=== PATIENT | male | born 1990 | race African-American/Black ===

== ENCOUNTER 2017-03-30 12:23 | Emergency (ER) | payer OTHER ==
--- OUTSIDE RECORDS SUMMARY | 2017-03-30 12:46 | XMS | Clinical Summary ---
:1990 Author Organization [facility] Address [address] [place] [address] Phone Care Team Providers Name Role Phone , Primary Care Provider Unavailable Allergies No Known Allergies Current Medications No known medications Active Problems Not on file Social History Tobacco Use Types Packs/Day Years Used Date Never Smoker Alcohol Use Drinks/Week oz/Week Comments No Sex Assigned at Date Recorded Not on file Last Filed Vital Signs Vital Sign Reading Time Taken Blood Pressure 155/85 12/15/2014 1:23 PM CDT Pulse 98 12/15/2014 1:23 PM CDT Temperature 36.6 C (97.9 F) 12/15/2014 12:33 PM CDT Respiratory Rate 17 12/15/2014 1:23 PM CDT Oxygen Saturation 95% 12/15/2014 1:23 PM CDT Inhaled Oxygen Concentration - - Weight 104.3 kg (230 lb) 12/14/2014 10:25 AM CDT Height 175.3 cm (5' 9.02") 12/14/2014 10:25 AM CDT Body Mass Index 33.95 12/14/2014 10:25 AM CDT Plan of Treatment Not on file Implants Implanted Type Area Room Manager Device Expiration Date Model / Identifier Serial / Lot [employer] Cornea Tissue Right: [employer] EYES OF 12/23/2014 / Implanted:Qty: 1 on 12/15/2014 by Elodia Roberts MD Eye [employer] [id number] / Results Not on filefrom Last 3 Months
[2017-03-30] MEDS ORDERED: Iopamidol 370 76% 50 ML VIAL FS ONE (13:33)
[2017-03-30] MEDS ORDERED: ISOVUE-370 76%-LOCM 1 ML ONE (13:34)
[2017-03-30 16:10] LABS: #Basophils 0.1 thou/uL (0.0-0.2); #Eosinphils 0.2 thou/uL (0.0-0.7); #Lymphocytes 1.9 thou/uL (1.20-3.40); #Neutrophils 4.9 thou/uL (1.40-6.50); %Basophils 1.2 % (0.0-1.0); %Lymphocytes 23.1 % (21.0-51.0); %Monocytes 12.4 % (0.0-10.0); Mean Platelet Volume 10.7 fL (7.4-10.4); White Blood Cell (WBC) Count 8.1 thou/uL (4.8-10.8)
[2017-03-30 16:19] LABS: ALT (SGPT) 20 U/L (8-55); AST (SGOT) 16 U/L (5-34); Alkaline Phosphatase 114 U/L (40-150); Anion Gap 16 mmol/L (10-20); BUN (Urea Nitrogen) 8 mg/dL (8.9-20.6); Bilirubin, Total 0.6 mg/dL (0.2-1.2); Calc. Creatinine Clearance 0 mL/min (70-130); Calcium 10.2 mg/dL (7.8-10.44); Carbon Dioxide 26 mmol/L (22-29); Chloride 99 mmol/L (98-107); Estimated GFR-MDRD Greater than 90; Globulin 4.4 g/dL (2.4-3.5); Protein, Total 9.1 g/dL (6.0-8.3)
[2017-03-30 16:59] LABS: Bilirubin Negative (Negative); Blood, Urine Negative (Negative); Glucose, Urine (Dipstick) Negative (Negative); Ketone, Urine Negative (Negative); Nitrite Negative (Negative); Protein, Urine (Dipstick) Negative (Neg-Trace)
--- NOTE | 2017-03-30 19:28 | CT ---
CT OF ABDOMEN AND PELVIS 03/30/17 COMPARISON: 08/27/16 HISTORY: Constipation and rectal pain. TECHNIQUE: Serial axial CT imaging at 5 mm intervals from the lung bases through the pubic symphysis with IV an d oral contrast. FINDINGS: The imaged lung bases appears unremarkable. There is no free intraperitoneal air noted. The liver, gallbladder, spleen, pancreas, adrenal glands, and kidneys appear unremarkable. There is abnormal increased density in the perirectal/presacral fat, most significant along the post erior aspect of the distal colon/rectum right of midline. There is a focal area of wall thickening o f the distal colon/rectum in this region, best seen on axial image 85. There are numerous enlarged n odes adjacent to the distal colon and rectum both posterior to as well as anterior to the rectum and superior to the distal colon near the rectosigmoid junction. This includes a node anterior to the s acrum and to the left of midline measuring 1.1 cm on axial image 74. Numerous perirectal fat enlarge d nodes are noted as well. There is no evidence for bowel obstruction. No evidence for abscess. No evidence for appendicitis. An enlarged node is noted in the inguinal region on the left measuring up to 1.9 cm in short axis di mension, new. Mildly enlarged nodes are seen in the right inguinal region measuring up to 1.2 cm, ne w as well. There is a mildly prominent para-aortic node on the left on axial image 46 measuring 5-8 mm in short axis dimension. The vascular structures appear patent. No acute osseous abnormality is seen. IMPRESSION: Perirectal fat stranding with focal area of rectal wall thickening posteriorly on the right. These f indings are suspicious for an inflammatory/infectious process. However, lymphadenopathy in the perir ectal fat and in the inguinal region while likely reactive in nature, could potentially be neoplasti c, on the basis of an underlying rectal tumor. Thus, short term followup direct visualization via co lonoscopy following treatment of the acute symptoms is advised. Dr. Suad Castrejon made aware 5:40 p.m., 03/30/17. Code CR POS: [facility]
== END 2017-03-30 18:55 | disposition home or self-care (01) ==
LOC: ERS 12:23
DX: K59.00 Constipation, unspecified (principal); K62.89 Other specified diseases of anus and rectum; I10 Essential (primary) hypertension; Z79.899 Other long term (current) drug therapy
CPT/HCPCS: 74177; 80053; 81003; 85025; 96360

== ENCOUNTER 2017-10-21 09:39 | Emergency (ER) | payer OTHER | END 2017-10-21 10:33 | disposition home or self-care (01) | LOC: SCSER 09:39 | DX: A60.01 Herpesviral infection of penis (principal); M79.644 Pain in right finger(s); B20 Human immunodeficiency virus [HIV] disease; I10 Essential (primary) hypertension; Z79.4 Long term (current) use of insulin; Z79.899 Other long term (current) drug therapy | CPT/HCPCS: 99283 ==

== ENCOUNTER 2018-06-24 14:42 | Inpatient (IN) | payer OTHER ==
[2018-06-24 15:36] LABS: #Basophils 0.1 thou/uL (0.0-0.2); #Eosinphils 0.1 thou/uL (0.0-0.7); #Lymphocytes 1.1 thou/uL (1.20-3.40); #Monocytes 0.5 thou/uL (0.11-0.59); #Neutrophils 5.6 thou/uL (1.40-6.50); %Basophils 0.7 % (0.0-1.0); %Eosinophils 0.8 % (0.0-10.0); %Lymphocytes 14.5 % (21.0-51.0); %Monocytes 6.8 % (0.0-10.0); %Neutrophils 77.2 % (42.0-75.0); Hemoglobin 14.8 g/dL (14.0-18.0); Mean Corpuscular Hemoglobin 28.3 pg (27.0-31.0); Mean Corpuscular Volume 81.1 fL (78.0-98.0); Mean Platelet Volume 11.4 fL (7.4-10.4); Platelet Count 137 thou/uL (130-400); RBC Distribution Width 11.4 % (11.5-14.5); Red Blood Cell (RBC) Count 5.22 mill/uL (4.70-6.10); White Blood Cell (WBC) Count 7.3 thou/uL (4.8-10.8)
[2018-06-24] MEDS ORDERED: Adacel (T-DAP) 0.5 ML SYRINGE ONE (15:39)
[2018-06-24] MEDS ORDERED: Morphine 4 MG/ML VIAL ONE (15:39)
[2018-06-24] MEDS ORDERED: Piperacillin/Tazobactam 3.375 GM VIAL ONE (15:39)
[2018-06-24] MEDS ORDERED: Ondansetron PF 4 MG/2 ML Vial ONE (15:39)
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
[2018-06-24 16:07] LABS: ALT (SGPT) 15 U/L (8-55); AST (SGOT) 22 U/L (5-34); Albumin 4.2 g/dL (3.5-5.0); Alkaline Phosphatase 247 U/L (40-150); Anion Gap 16 mmol/L (10-20); BUN (Urea Nitrogen) 9 mg/dL (8.9-20.6); Bilirubin, Total 0.4 mg/dL (0.2-1.2); Calc. Creatinine Clearance 0 mL/min (70-130); Carbon Dioxide 26 mmol/L (22-29); Chloride 88 mmol/L (98-107); Estimated GFR-MDRD 63; Globulin 4.9 g/dL (2.4-3.5); Protein, Total 9.1 g/dL (6.0-8.3); Sodium 126 mmol/L (136-145)
[2018-06-24 16:11] LABS: Glucose 724 mg/dL (70-105)
[2018-06-24 16:19] LABS: Lipase 42 U/L (8-78); Phosphorus 3.5 mg/dL (2.3-4.7)
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
[2018-06-24] MEDS ORDERED: Ketorolac Tromethamine 30 MG/ML VIAL ONE (16:35)
[2018-06-24 16:53] LABS: Bilirubin Negative (Negative); Blood, Urine Negative (Negative); Clarity CLEAR (Clear); Glucose, Urine (Dipstick) >=1000 mg/dL (Negative); Leukocyte Negative (Negative); Nitrite Negative (Negative); Protein, Urine (Dipstick) Negative (Neg-Trace); Specific Gravity, Urine 1.029 (1.002-1.036); Urobilinogen 0.2 mg/dL (0.2-1.0)
[2018-06-24] MEDS ORDERED: Fentanyl 100 MCG/2 ML VIAL ONE (17:42)
[2018-06-24] MEDS ORDERED: Insulin Regular 300 UNITS/3 ML VIAL ONE (19:06)
[2018-06-24] MEDS ORDERED: Ondansetron PF 4 MG/2 ML Vial IVP PRN (19:54)
[2018-06-24] MEDS ORDERED: traMADol HCl 50 MG TAB PO PRN (19:54)
[2018-06-24] MEDS ORDERED: Dextrose 50% Abboject 50 ML SYRINGE SLOW IVP PRN (19:54)
[2018-06-24] MEDS ORDERED: Dextrose 5% in Water 1,000 ML IV PRN (19:54)
[2018-06-24] MEDS ORDERED: hydrALAZINE 20 MG/ML VIAL SLOW IVP PRN (19:54)
[2018-06-24] MEDS ORDERED: traMADol HCl 50 MG TAB ONE (20:53)
[2018-06-24] MEDS ORDERED: Famotidine 20 MG TAB ONE (20:54)
[2018-06-24] MEDS: Famotidine 20 MG TAB PO SCH (20:59)
[2018-06-24] MEDS: traMADol HCl 50 MG TAB PO PRN (21:00)
[2018-06-24] MEDS: Sodium Chloride 0.9% 1,000 ML IV SCH (21:23)
[2018-06-25] MEDS: Acetaminophen 1,000 MG in Premix Bag 1 BAG IVPB SCH ×5 (01:07→23:57)
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
[2018-06-25 03:54] LABS: #Basophils 0.1 thou/uL (0.0-0.2); #Eosinphils 0.1 thou/uL (0.0-0.7); #Lymphocytes 1.5 thou/uL (1.20-3.40); #Monocytes 0.9 thou/uL (0.11-0.59); #Neutrophils 9.4 thou/uL (1.40-6.50); %Basophils 0.5 % (0.0-1.0); %Eosinophils 0.4 % (0.0-10.0); %Lymphocytes 12.3 % (21.0-51.0); %Monocytes 7.9 % (0.0-10.0); Hemoglobin 13.6 g/dL (14.0-18.0); Mean Corpuscular HGB CONC 33.4 g/dL (32.0-36.0); Mean Corpuscular Hemoglobin 27.5 pg (27.0-31.0); Mean Corpuscular Volume 82.5 fL (78.0-98.0); Mean Platelet Volume 11.4 fL (7.4-10.4); Platelet Count 137 thou/uL (130-400); RBC Distribution Width 11.7 % (11.5-14.5); Red Blood Cell (RBC) Count 4.95 mill/uL (4.70-6.10); White Blood Cell (WBC) Count 11.8 thou/uL (4.8-10.8)
[2018-06-25 04:02] LABS: Prothrombin Time 13.5 SEC (12.0-14.7)
[2018-06-25 04:32] LABS: ALT (SGPT) 12 U/L (8-55); AST (SGOT) 11 U/L (5-34); Albumin 3.7 g/dL (3.5-5.0); Alkaline Phosphatase 139 U/L (40-150); Anion Gap 15 mmol/L (10-20); BUN (Urea Nitrogen) 8 mg/dL (8.9-20.6); Bilirubin, Total 0.5 mg/dL (0.2-1.2); Calc. Creatinine Clearance 0 mL/min (70-130); Calcium 9.3 mg/dL (7.8-10.44); Carbon Dioxide 23 mmol/L (22-29); Chloride 100 mmol/L (98-107); Estimated GFR-MDRD Greater than 90; Globulin 3.9 g/dL (2.4-3.5); Glucose 373 mg/dL (70-105); Magnesium 2.1 mg/dL (1.6-2.6); Phosphorus 4.4 mg/dL (2.3-4.7); Potassium 4.1 mmol/L (3.5-5.1); Protein, Total 7.6 g/dL (6.0-8.3); Sodium 134 mmol/L (136-145)
[2018-06-25] MEDS: Famotidine 20 MG TAB PO SCH ×2 (08:16→22:04)
[2018-06-25] MEDS: Sodium Chloride 0.9% 1,000 ML IV SCH ×3 (08:17→22:03)
[2018-06-25 08:25] VITALS: BMI 27.9
[2018-06-25] MEDS: Chlorhexidine Gluconate 15 ML UDCUP SSP SCH ×2 (09:00→22:04)
[2018-06-25] MEDS ORDERED: HumaLOG 300 UNITS/3 ML VIAL ONE (09:12)
[2018-06-25] MEDS: HumaLOG 300 UNITS/3 ML VIAL SC PRN ×2 (10:08→18:55)
[2018-06-25 10:36] LABS: Amphetamine Not Detected (NotDetected); Barbiturates Screen Not Detected (NotDetected); Benzodiazepine Screen Not Detected (NotDetected); Cocaine Metabolite Screen Not Detected (NotDetected); Medtox Control Line Valid? VALID (VALID); Medtox Reader # READER 1; Methadone Not Detected (NotDetected); Methamphetamine Not Detected (NotDetected); Opiate Screen Detected (NotDetected); Oxycodone Screen Not Detected (NotDetected); Phencyclidine (PCP) Not Detected (NotDetected); THC/Cannabinoid Screen Not Detected (NotDetected); Tricyclic Screen Not Detected (NotDetected)
[2018-06-25] MEDS ORDERED: Morphine 4 MG/ML VIAL ONE ×2 (11:19→15:29)
[2018-06-25] MEDS: Morphine 4 MG/ML VIAL SLOW IVP PRN ×2 (11:22→15:38)
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
[2018-06-25] MEDS: Clindamycin/D5W 900 MG in Premix Bag 1 BAG IVPB SCH ×2 (18:34→22:04)
[2018-06-25] MEDS: traMADol HCl 50 MG TAB PO PRN (22:35)
[2018-06-25] MEDS: Guaifenesin DM 100-10/5 ML UDCUP PO PRN (22:39)
[2018-06-26] MEDS: HumaLOG 300 UNITS/3 ML VIAL SC PRN ×6 (04:19→20:46)
[2018-06-26] MEDS: Clindamycin/D5W 900 MG in Premix Bag 1 BAG IVPB SCH ×3 (05:10→21:32)
[2018-06-26] MEDS: Sodium Chloride 0.9% 1,000 ML IV SCH ×2 (05:10→14:21)
[2018-06-26 06:47] LABS: BUN (Urea Nitrogen) 7 mg/dL (8.9-20.6); Calc. Creatinine Clearance 204 mL/min (70-130); Calcium 9.3 mg/dL (7.8-10.44); Carbon Dioxide 22 mmol/L (22-29); Estimated GFR-MDRD Greater than 90; Glucose 216 mg/dL (70-105); Magnesium 1.8 mg/dL (1.6-2.6); Phosphorus 3.2 mg/dL (2.3-4.7)
[2018-06-26 06:54] LABS: Chloride 101 mmol/L (98-107); Potassium 3.7 mmol/L (3.5-5.1); Sodium 134 mmol/L (136-145)
[2018-06-26 07:14] LABS: Anion Gap 15 mmol/L (10-20)
[2018-06-26] MEDS ORDERED: Potassium Chloride 30 MEQ in Sodium Chloride 0.9% 250 ML 250 ML IV SCH (07:45)
[2018-06-26] MEDS: Famotidine 20 MG TAB PO SCH ×2 (08:24→20:39)
[2018-06-26] MEDS: traMADol HCl 50 MG TAB PO PRN ×2 (08:24→20:39)
[2018-06-26] MEDS: Chlorhexidine Gluconate 15 ML UDCUP SSP SCH ×2 (08:24→20:40)
[2018-06-26] MEDS ORDERED: Magnesium 2 GM/50 ML 1 GM in Premix Bag 1 BAG IVPB SCH (08:30)
[2018-06-26 09:05] LABS: #Eosinphils 0.1 thou/uL (0.0-0.7); #Lymphocytes 1.6 thou/uL (1.20-3.40); #Monocytes 1.1 thou/uL (0.11-0.59); #Neutrophils 5.3 thou/uL (1.40-6.50); %Basophils 0.6 % (0.0-1.0); %Lymphocytes 19.3 % (21.0-51.0); %Monocytes 13.6 % (0.0-10.0); %Neutrophils 65.4 % (42.0-75.0); Hemoglobin 12.7 g/dL (14.0-18.0); Mean Corpuscular HGB CONC 33.3 g/dL (32.0-36.0); Mean Corpuscular Hemoglobin 28.2 pg (27.0-31.0); Mean Corpuscular Volume 84.6 fL (78.0-98.0); Mean Platelet Volume 11.6 fL (7.4-10.4); Platelet Count 117 thou/uL (130-400); Platelet Morphology Comment Appears Decreased; RBC Distribution Width 11.5 % (11.5-14.5); White Blood Cell (WBC) Count 8.1 thou/uL (4.8-10.8)
[2018-06-26] MEDS: Morphine 4 MG/ML VIAL SLOW IVP PRN (11:08)
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
[2018-06-26] MEDS: Acetaminophen 500 MG TAB PO SCH ×2 (15:47→20:39)
[2018-06-26] MEDS: Guaifenesin DM 100-10/5 ML UDCUP PO PRN (18:21)
[2018-06-26] MEDS: Senokot S 8.6-50 MG TAB PO SCH (20:39)
[2018-06-27] MEDS ORDERED: Dextrose 5 %-0.45 % NaCl 1,000 ML IV SCH (00:01)
[2018-06-27] MEDS: HumaLOG 300 UNITS/3 ML VIAL SC PRN ×5 (00:16→23:15)
[2018-06-27] MEDS: Acetaminophen 500 MG TAB PO SCH ×4 (03:09→20:34)
[2018-06-27] MEDS: Clindamycin/D5W 900 MG in Premix Bag 1 BAG IVPB SCH ×3 (05:37→21:33)
[2018-06-27] MEDS ORDERED: Dextrose 5% in Water 1,000 ML IV PRN (06:26)
[2018-06-27] MEDS ORDERED: Dextrose 50% Abboject 50 ML SYRINGE SLOW IVP PRN (06:26)
[2018-06-27 06:52] LABS: #Eosinphils 0.1 thou/uL (0.0-0.7); #Lymphocytes 1.3 thou/uL (1.20-3.40); #Monocytes 0.8 thou/uL (0.11-0.59); #Neutrophils 3.4 thou/uL (1.40-6.50); %Basophils 0.8 % (0.0-1.0); %Eosinophils 1.9 % (0.0-10.0); %Lymphocytes 22.6 % (21.0-51.0); %Monocytes 14.1 % (0.0-10.0); %Neutrophils 60.5 % (42.0-75.0); Hemoglobin 12.1 g/dL (14.0-18.0); Mean Corpuscular HGB CONC 33.2 g/dL (32.0-36.0); Mean Corpuscular Hemoglobin 28.4 pg (27.0-31.0); Mean Corpuscular Volume 85.7 fL (78.0-98.0); Mean Platelet Volume 11.3 fL (7.4-10.4); Platelet Count 121 thou/uL (130-400); RBC Distribution Width 11.4 % (11.5-14.5); Red Blood Cell (RBC) Count 4.27 mill/uL (4.70-6.10); White Blood Cell (WBC) Count 5.7 thou/uL (4.8-10.8)
[2018-06-27 07:05] LABS: Anion Gap 12 mmol/L (10-20); BUN (Urea Nitrogen) 6 mg/dL (8.9-20.6); Calc. Creatinine Clearance 204 mL/min (70-130); Calcium 9.1 mg/dL (7.8-10.44); Carbon Dioxide 23 mmol/L (22-29); Chloride 101 mmol/L (98-107); Estimated GFR-MDRD Greater than 90; Glucose 202 mg/dL (70-105); Magnesium 1.6 mg/dL (1.6-2.6); Phosphorus 3.5 mg/dL (2.3-4.7); Potassium 3.4 mmol/L (3.5-5.1); Sodium 133 mmol/L (136-145)
[2018-06-27] MEDS ORDERED: Potassium ACETATE 40 MEQ/20 ML VIAL IV SCH (07:30)
[2018-06-27] MEDS ORDERED: Magnesium 2 GM/50 ML 2 GM in Premix Bag 1 BAG IVPB SCH (07:30)
[2018-06-27] MEDS ORDERED: Potassium ACETATE 40 MEQ in Sodium Chloride 0.9% 250 ML 250 ML IV SCH (08:00)
[2018-06-27] MEDS ORDERED: Fentanyl 100 MCG/2 ML VIAL ONE ×2 (08:11)
[2018-06-27] MEDS ORDERED: Midazolam HCl 2 mg/2 ml Vial ONE (08:11)
[2018-06-27] MEDS ORDERED: Famotidine/PF 20 mg/2ml Vial ONE (08:11)
[2018-06-27] MEDS ORDERED: Clindamycin/D5W 900 mg/50 ml Premix Bag ONE (08:14)
[2018-06-27] MEDS ORDERED: Oxymetazoline HCl 0.05% ( 15 ML ) ONE (08:17)
[2018-06-27] MEDS ORDERED: Lidocaine 2% Jelly 5 ML TUBE ONE (08:17)
[2018-06-27] MEDS ORDERED: Chlorhexidine Gluconate 15 ML UDCUP SSP ONE (08:22)
[2018-06-27] MEDS ORDERED: Hydrocortisone 1% Cream 30 GM TUBE ONE (08:22)
[2018-06-27] MEDS ORDERED: Bupivacaine HCl 0.25%/Epi 0.0005/PF 10 ML VIAL FS ONE (08:22)
[2018-06-27] MEDS ORDERED: Lidocaine 1% w/Epinephrine 1:100K 20 ML VIAL ONE (08:22)
[2018-06-27] MEDS ORDERED: Dexamethasone 4 mg/ml Vial ONE (08:34)
[2018-06-27] MEDS ORDERED: Propofol 500 MG/50 ML VIAL ONE (09:20)
[2018-06-27] MEDS ORDERED: PROPOFOL 40 ML ONE (09:21)
[2018-06-27] MEDS ORDERED: Promethazine HCl 25 MG/ML VIAL SLOW IVP PRN (10:56)
[2018-06-27] MEDS ORDERED: Ondansetron HCl/PF 4 MG/2 ML Vial IVP PRN (10:56)
[2018-06-27] MEDS ORDERED: HYDROmorphone 2 MG/ML VIAL SLOW IVP PRN (10:56)
[2018-06-27] MEDS ORDERED: Meperidine HCl/PF 25 MG/ML VIAL SLOW IVP PRN (10:56)
[2018-06-27] MEDS ORDERED: Promethazine HCl 25 MG/ML VIAL IM PRN (10:56)
[2018-06-27] MEDS ORDERED: HumaLOG 300 UNITS/3 ML VIAL ONE (11:48)
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
[2018-06-27] MEDS: Sodium Chloride 0.9% 1,000 ML IV SCH ×3 (14:10→20:45)
[2018-06-27] MEDS: Chlorhexidine Gluconate 15 ML UDCUP SSP SCH ×2 (14:10→20:34)
[2018-06-27] MEDS: Famotidine 20 MG TAB PO SCH ×2 (14:10→20:35)
[2018-06-27] MEDS: Senokot S 8.6-50 MG TAB PO SCH ×2 (14:10→20:35)
[2018-06-27] MEDS: Polyethylene Glycol 3350 17 GM Packet PO SCH (15:17)
[2018-06-27] MEDS: traMADol HCl 50 MG TAB PO PRN ×2 (15:18→23:13)
[2018-06-27 15:39] LABS: Potassium 4.3 mmol/L (3.5-5.1)
[2018-06-27] MEDS ORDERED: PROPOFOL 200 MG/20 ML VIAL ONE (17:02)
[2018-06-27] MEDS ORDERED: Rocuronium Bromide 10 MG/ML (10ML VIAL) ONE (17:02)
[2018-06-27] MEDS ORDERED: Lidocaine 1% PF 5 ML VIAL ONE (17:02)
[2018-06-27] MEDS ORDERED: ePHEDrine 50 MG/ML VIAL ONE (17:02)
[2018-06-27] MEDS ORDERED: Glycopyrrolate 0.2 MG/ML 5 ML SYRINGE ONE (17:02)
[2018-06-27] MEDS ORDERED: Metoclopramide HCl 10 MG/2 ML VIAL ONE (17:02)
[2018-06-27] MEDS ORDERED: Succinylcholine Chloride 20 MG/ML 10 ml SYRINGE FS ONE (17:02)
[2018-06-27] MEDS ORDERED: PHENYLEPHRINE-NS 100 MCG/ML 10 ML SYRINGE ONE (17:02)
[2018-06-27] MEDS ORDERED: Ketorolac Tromethamine 30 MG/ML VIAL ONE (17:02)
[2018-06-27] MEDS ORDERED: Ondansetron PF 4 MG/2 ML Vial ONE (17:02)
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
[2018-06-28] MEDS: Acetaminophen 500 MG TAB PO SCH ×2 (02:33→08:09)
[2018-06-28] MEDS: Sodium Chloride 0.9% 1,000 ML IV SCH ×2 (03:41→05:57)
[2018-06-28] MEDS: HumaLOG 300 UNITS/3 ML VIAL SC PRN (04:49)
[2018-06-28] MEDS: Clindamycin/D5W 900 MG in Premix Bag 1 BAG IVPB SCH (05:53)
[2018-06-28] MEDS: Guaifenesin DM 100-10/5 ML UDCUP PO PRN (06:55)
[2018-06-28] MEDS: Chlorhexidine Gluconate 15 ML UDCUP SSP SCH (08:09)
[2018-06-28] MEDS: Senokot S 8.6-50 MG TAB PO SCH (08:09)
[2018-06-28] MEDS: Famotidine 20 MG TAB PO SCH (08:09)
[2018-06-28] MEDS: Polyethylene Glycol 3350 17 GM Packet PO SCH (08:09)
[2018-06-28 08:36] VITALS: BP 131/73; TEMP 97.8
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
== END 2018-06-28 11:47 | disposition home or self-care (01) | DRG 131 ==
LOC: ERS 14:42 → ERHOLD 19:17 → SURG A 06-25 21:10
PROVIDERS: ADMIT Surgery; ATTEND Surgery
PROC: 0NST04Z Reposition Right Mandible with Internal Fixation Device, Open Approach (ICD-10-PCS; principal; 2018-06-27)
DX: S02.609A Fracture of mandible, unspecified, initial encounter for closed fracture (principal); E87.1 Hypo-osmolality and hyponatremia; N17.9 Acute kidney failure, unspecified; Z21 Asymptomatic human immunodeficiency virus [HIV] infection status; I10 Essential (primary) hypertension; F16.90 Hallucinogen use, unspecified, uncomplicated; Z79.4 Long term (current) use of insulin; E10.65 Type 1 diabetes mellitus with hyperglycemia; Z91.14 Patient's other noncompliance with medication regimen; Z94.7 Corneal transplant status
CPT/HCPCS: 36415; 36416; 70450; 70486; 80048; 80053; 80306; 81003; 82010; 83690; 83735; 84100; 85025; 85610; 85730; 90471; 90715; 96365; 96375; C1713; J0131; J1100; J1815; J1885; J2001; J2250; J2270; J2405; J2543; J2704; J2765; J3010; J3475; J3490; J7050; S0028

== ENCOUNTER 2018-08-22 09:03 | Day surgery (SDC) | payer OTHER ==
[2018-08-21 15:50] VITALS: BMI 29.4
[2018-08-22] MEDS ORDERED: Clindamycin/D5W 900 mg/50 ml Premix Bag ONE (10:30)
[2018-08-22] MEDS ORDERED: Chlorhexidine Gluconate 15 ML UDCUP SSP ONE (10:52)
[2018-08-22] MEDS ORDERED: Lidocaine 1% w/Epinephrine 1:100K 20 ML VIAL ONE (10:52)
[2018-08-22] MEDS ORDERED: Bupivacaine/Epinephrine 0.25% 30 ML VIAL ONE (10:52)
[2018-08-22] MEDS ORDERED: Fentanyl 100 MCG/2 ML VIAL ONE ×2 (10:52→13:10)
[2018-08-22] MEDS ORDERED: Hydrocortisone 1% Cream 30 GM TUBE ONE (10:52)
[2018-08-22] MEDS ORDERED: Lidocaine 2% Jelly 5 ML TUBE ONE (10:53)
[2018-08-22] MEDS ORDERED: Dexamethasone 4 mg/ml Vial ONE (10:56)
[2018-08-22] MEDS ORDERED: Insulin Regular 300 UNITS/3 ML VIAL ONE (10:56)
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
== END 2018-08-22 16:45 | disposition home or self-care (01) ==
LOC: SDC 09:03
PROVIDERS: ATTEND Dentist Oral and Maxillofacial Surgery
PROC: 0NST04Z Reposition Right Mandible with Internal Fixation Device, Open Approach (ICD-10-PCS; principal; 2018-08-22)
DX: T84.218A Breakdown (mechanical) of internal fixation device of other bones, initial encounter (principal); E11.9 Type 2 diabetes mellitus without complications; Z21 Asymptomatic human immunodeficiency virus [HIV] infection status; Z79.4 Long term (current) use of insulin; Z79.899 Other long term (current) drug therapy; Z98.890 Other specified postprocedural states; Z91.11 Patient's noncompliance with dietary regimen
CPT/HCPCS: 36416; C1713; J1100; J1815; J2001; J3010; J3490

== ENCOUNTER 2019-07-18 08:04 | Inpatient (IN) | payer OTHER ==
[2019-07-18 09:00] LABS: #Lymphocytes 1.2 thou/uL (1.20-3.40); #Neutrophils 7.6 thou/uL (1.40-6.50); %Basophils 0.3 % (0.0-1.0); %Eosinophils 0.3 % (0.0-10.0); %Lymphocytes 12.4 % (21.0-51.0); %Monocytes 10.4 % (0.0-10.0); %Neutrophils 76.7 % (42.0-75.0); Hemoglobin 13.9 g/dL (14.0-18.0); Mean Corpuscular HGB CONC 33.7 g/dL (32.0-36.0); Mean Corpuscular Hemoglobin 27.8 pg (27.0-31.0); Mean Corpuscular Volume 82.4 fL (78.0-98.0); Mean Platelet Volume 11.8 fL (7.4-10.4); Platelet Count 110 thou/uL (130-400); RBC Distribution Width 11.5 % (11.5-14.5); White Blood Cell (WBC) Count 9.9 thou/uL (4.8-10.8)
[2019-07-18 09:21] LABS: ALT (SGPT) 10 U/L (8-55); AST (SGOT) 11 U/L (5-34); Albumin 4.1 g/dL (3.5-5.0); Alkaline Phosphatase 220 U/L (40-110); Anion Gap 9 mmol/L (10-20); BUN (Urea Nitrogen) 8 mg/dL (8.9-20.6); Bilirubin, Total 0.8 mg/dL (0.2-1.2); Calc. Creatinine Clearance 0 mL/min (70-130); Calcium 9.3 mg/dL (7.8-10.44); Carbon Dioxide 29 mmol/L (22-29); Chloride 96 mmol/L (98-107); Estimated GFR-MDRD Greater than 90; Globulin 3.7 g/dL (2.4-3.5); Potassium 4.3 mmol/L (3.5-5.1); Protein, Total 7.8 g/dL (6.0-8.3); Sodium 130 mmol/L (136-145)
[2019-07-18 09:25] LABS: Glucose 597 mg/dL (70-105)
[2019-07-18] MEDS ORDERED: Clindamycin/D5W 900 mg/50 ml Premix Bag ONE ×2 (09:27→09:29)
[2019-07-18] MEDS ORDERED: Ketorolac Tromethamine 30 MG/ML VIAL ONE (09:27)
[2019-07-18] MEDS ORDERED: Dexamethasone 10 MG/ML VIAL ONE (09:27)
[2019-07-18] MEDS ORDERED: Insulin Regular 300 UNITS/3 ML VIAL ONE (09:48)
--- NOTE | 2019-07-18 09:49 | CT ---
Exam: POSTCONTRAST FACE CT: HISTORY: Right-sided jaw swelling. History of surgery one year ago. COMPARISON: 06/24/2018. FINDINGS: Visualized brain parenchyma does not imaging and pathologic enhancement. Orbits: Bilateral ocular lenses are appropriately located. Both globes are intact. Retrobulbar fat is preserved. Symmetric attenuation of the optic nerves and ocular rectus muscles. Adequate aeration of the visualized paranasal sinuses and mastoid air cells. Zygomatic arches are intact. Nasal bones are intact. Bilaterally, ostiomeatal complexes are patent. Intact nasal septum with mild deviation towards the right side. There is associated bony spur. Osseous margins of the sinuses and orbits are maintained. Maxilla is intact. There is demonstration of internal fixation hardware along the right mandible. Bas ed on the images provided, there does not appear to be any perihardware lucency. There is a lucency along the lateral margin of the mandible which may represent an incompletely healed fracture. Fractur e does abut the inferior alveolar canal. There is extensive right facial soft tissue/subcutaneous edema. Edematous change involves the right m asseter muscle which appears to be enlarged and heterogeneous. Intramuscular infection is suspected. Lymphadenopathy: There are enlarged right level 1 lymph nodes measuring 1.7 x 1.1 cm, and 1.7 x 1.2 c m. Enlarged right level 5 lymph node measures 1.1 x 1.8 cm. Enlarged left level 1 lymph node measures 1.3 x 1.2 cm. No evidence of a periapical abscess left or right mandibular teeth. However, there are dental caries in the posterior-most right mandibular tooth in the second left mandibular tooth. IMPRESSION: 1. Inflammatory changes involving the right face with edema/prominence of the right masseter muscle. Source is uncertain but may be involved from an infected internal fixation plate along the right mandible. 2. Periodontal disease as described above. Possibility of an odontogenic origin of the inflammatory c hanges in the right face/neck cannot be entirely excluded. 3. Presumed reactive lymphadenopathy. Transcribed Date/Time: 07/18/2019 9:59 AM
[2019-07-18] MEDS ORDERED: Iopamidol-370 76% 500 ML 1 ML ONE (11:01)
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
[2019-07-18] MEDS ORDERED: Dextrose 50% Abboject 50 ML SYRINGE SLOW IVP PRN (13:15)
[2019-07-18] MEDS ORDERED: Dextrose 5% in Water 1,000 ML IV PRN (13:15)
[2019-07-18] MEDS ORDERED: Senokot S 8.6-50 MG TAB PO PRN (13:23)
[2019-07-18] MEDS ORDERED: Acetaminophen 650 MG Suppository PR PRN (13:23)
[2019-07-18] MEDS ORDERED: Ondansetron PF 4 MG/2 ML Vial IVP PRN (13:23)
[2019-07-18] MEDS: HumuLIN 70/30 (300 UNITS/3 ML VIAL) SC SCH (18:06)
[2019-07-18] MEDS: Clindamycin/D5W 900 MG in Premix Bag 1 BAG IVPB SCH (18:06)
--- NOTE | 2019-07-18 18:18 | CON ---
DATE OF CONSULTATION: CHIEF COMPLAINT/REASON FOR CONSULTATION: Right jaw pain and swelling. HISTORY OF PRESENT ILLNESS: This is a 29-year-old male with history of uncontrolled diabetes and right mandibular fracture over a year ago, treated with ORIF. The patient has intermittent pain and swelling from that area. Currently, admitted to the Family Medicine Service. PAST MEDICAL HISTORY: HIV, uncontrolled diabetes type 2. He has bilateral blindness. The patient's medicines as noted in the EHR. ALLERGIES: NO KNOWN DRUG ALLERGIES. PAST SURGICAL HISTORY: Bilateral corneal transplant, right jaw with ORIF x2. SOCIAL HISTORY: The patient denies alcohol, tobacco, and drug use. PHYSICAL EXAMINATION: VITAL SIGNS: The patient's blood pressure 142/83, pulse 100, respiratory rate 16, T-max 98.6, saturating 100% on room air. GENERAL: He is no acute distress. HEENT: He has large ___amount mastoid area swelling. There is purulent drainage through the right mandibular vestibule in the area of necrotic tooth #32 as well as tooth 1. Also, there is palpable plate that is palpable under underlying mucosa. His opening is good. His oropharynx is clear. V3 is intact. CT scan of the face shows inflammatory changes in the right masseter muscle area adjacent to decayed tooth #32 and a fractured plate in the lower right. LABORATORY STUDIES: White blood cell 9.9, platelets 110. Glucose is 597. ASSESSMENT: A 29-year-old male, history of HIV, uncontrolled type 2 diabetes with right submandibular abscess secondary to possibly mandibular hardware versus decayed abscessed teeth 1 and 32. PLAN: We will take patient to OR tomorrow for incision and drainage of abscess as well as removal of teeth 1 and 32, possibly removal of right mandibular hardware. Please keep patient on clindamycin 900 mg IV q.6-8 hours and Peridex oral rinse 15 mL swish and spit t.i.d. Job ID: [id number] [facility]OSPITALElza
[2019-07-18] MEDS: Ketorolac Tromethamine 30 MG/ML VIAL IVP PRN (20:46)
[2019-07-18] MEDS: Famotidine/PF 20 mg/2ml Vial SLOW IVP SCH (20:46)
[2019-07-18] MEDS: HumaLOG 300 UNITS/3 ML VIAL SC PRN (21:48)
[2019-07-19] MEDS: Clindamycin/D5W 900 MG in Premix Bag 1 BAG IVPB SCH ×3 (02:16→17:48)
[2019-07-19] MEDS: Ketorolac Tromethamine 30 MG/ML VIAL IVP PRN ×2 (03:49→16:22)
[2019-07-19] MEDS: HumaLOG 300 UNITS/3 ML VIAL SC PRN ×3 (05:50→20:49)
--- NOTE | 2019-07-19 05:56 | PDOC.FM ---
- Subjective Subjective: Patient complains of some right jaw pain this morning. He is due to have surgery with OMFS later today. Otherwise has no complaints. Patient's BP has been elevated since admission, he states that he used to take HCTZ and Amlodipine but ran out of meds in Mar 2019 and never followed up for refills. - Objective MAR Reviewed: Yes Vital Signs & Weight: Vital Signs (12 hours) Temp Pulse Resp BP Pulse Ox 07/19/19 03:51 99.2 F 105 H 18 142/74 H 99 07/18/19 23:11 98.2 F 97 16 142/75 H 98 07/18/19 20:48 99.1 F 102 H 18 132/74 98 Weight Weight 97.5 kg Result Diagrams: 07/19/19 05:56 07/19/19 05:56 Phys Exam - Physical Examination Constitutional: NAD HEENT: moist MMs swollen right jaw with overlying warmth Neck: supple Respiratory: no wheezing, no rhonchi, clear to auscultation bilateral Cardiovascular: RRR, no significant murmur Gastrointestinal: soft, positive bowel sounds Musculoskeletal: no edema, pulses present Neurological: normal sensation, moves all 4 limbs Psychiatric: normal affect, A&O x 3 Skin: no rash, normal turgor Dx/Plan (1) Infection of mandible Code(s): M27.2 - INFLAMMATORY CONDITIONS OF JAWS Status: Acute (2) Diabetes mellitus Code(s): E11.9 - TYPE 2 DIABETES MELLITUS WITHOUT COMPLICATIONS Status: Chronic Qualifiers: Diabetes mellitus type: type 2 Diabetes mellitus intermodal dispatcher insulin use: unspecified intermodal dispatcher insulin use status Diabetes mellitus complication status : with hyperglycemia Qualified Code(s): E11.65 - Type 2 diabetes mellitus with hyperglycemia (3) HIV (human immunodeficiency virus infection) Code(s): B20 - HUMAN IMMUNODEFICIENCY VIRUS [HIV] DISEASE Status: Acute Qualifiers: HIV symptom status: asymptomatic Qualified Code(s): Z21 - Asymptomatic human immunodeficiency virus [HIV] infection status - Plan Plan: Patient is a 29 yo AAM with past medical history of HIV, DM2, 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 1. Jaw Pain 2/2 Mandibular Fracture Plate Infection Pain & swelling in R side of face WBC normal CT: Inflammatory changes R masseter muscle, infected interanal fixation plate of R mandible, peridontal disease, reactive LAD Original surgery 06/15 Revision 09/13 Currently on Clinda s/p 1 dose in the ED, continue at 900 mg IV q8 hr per OMFS Continued toradol for pain prn Patient is currently NPO OMFS was contacted by the ED--plan on surgery this morning, continue Clindamycin, start Peridex oral rinse TID Alk Phos is elevated likely indicating bone infection 2. HIV + Continue home medication Biktarvy Pt has not been taking medication regularly as verified by his pharmacy ID doctor is Dr. Conway tried to contact, but his office is closed CD4 count and viral load ordered & pending 3. DMII Continue home med: Novolog 40 U QAM & 30 U QPM Aggressive SSI ACHS Accuchecks 4. Elevated Blood Pressure Hx of HTN, previously took HCTZ and Amlodipine but stopped in Mar 2019 d/t running out of supply If BP remains elevated at surgery, will consider restarting HCTZ Code Status: Full Activity: Ad Luz Maria Diet: NPO pending I&D this AM DVT PPx: SCDs Dispo: Stable, admitted to Surg inpt. I&D with possible hardware removal scheduled for this morning, will await further OMFS recs. Anticipate discharge in <48 hrs.
[2019-07-19 06:18] LABS: #Lymphocytes 1.2 thou/uL (1.20-3.40); #Monocytes 1.3 thou/uL (0.11-0.59); #Neutrophils 10.4 thou/uL (1.40-6.50); %Basophils 0.1 % (0.0-1.0); %Eosinophils 0.2 % (0.0-10.0); %Lymphocytes 9.1 % (21.0-51.0); %Monocytes 10.3 % (0.0-10.0); %Neutrophils 80.3 % (42.0-75.0); Hemoglobin 12.5 g/dL (14.0-18.0); Mean Corpuscular HGB CONC 34.5 g/dL (32.0-36.0); Mean Platelet Volume 11.7 fL (7.4-10.4); Platelet Count 110 thou/uL (130-400); RBC Distribution Width 11.5 % (11.5-14.5); White Blood Cell (WBC) Count 12.9 thou/uL (4.8-10.8)
[2019-07-19 06:33] LABS: ALT (SGPT) 8 U/L (8-55); AST (SGOT) 9 U/L (5-34); Albumin 3.4 g/dL (3.5-5.0); Alkaline Phosphatase 112 U/L (40-110); Anion Gap 10 mmol/L (10-20); BUN (Urea Nitrogen) 9 mg/dL (8.9-20.6); Bilirubin, Total 0.8 mg/dL (0.2-1.2); Calc. Creatinine Clearance 167 mL/min (70-130); Carbon Dioxide 26 mmol/L (22-29); Chloride 100 mmol/L (98-107); Estimated GFR-MDRD Greater than 90; Globulin 3.8 g/dL (2.4-3.5); Glucose 372 mg/dL (70-105); Potassium 4.1 mmol/L (3.5-5.1); Protein, Total 7.2 g/dL (6.0-8.3); Sodium 132 mmol/L (136-145)
[2019-07-19] MEDS ORDERED: Chlorhexidine Gluconate 15 ML UDCUP SSP ONE ×2 (07:21→07:23)
[2019-07-19] MEDS ORDERED: Sodium Chloride 0.9% 10 ML ONE (07:21)
[2019-07-19] MEDS ORDERED: Lidocaine 1% w/Epinephrine 1:100K 20 ML VIAL ONE (07:21)
[2019-07-19] MEDS ORDERED: Bacitracin Zinc Ointment 30 gm TUBE ONE (07:21)
[2019-07-19] MEDS ORDERED: Fentanyl 100 MCG/2 ML VIAL ONE ×2 (07:31)
[2019-07-19] MEDS ORDERED: Midazolam HCl 2 mg/2 ml Vial ONE (07:31)
[2019-07-19] MEDS ORDERED: Clindamycin/D5W 900 mg/50 ml Premix Bag ONE (07:39)
[2019-07-19] MEDS ORDERED: AFRIN NASAL MIST 15 ML BOT ONE (07:58)
[2019-07-19] MEDS ORDERED: Insulin Regular 300 UNITS/3 ML VIAL ONE (08:00)
[2019-07-19] MEDS ORDERED: Lidocaine Viscous Sol 2% 15 ml UD Cup ONE (08:04)
[2019-07-19] MEDS ORDERED: (Bictegrav/Emtricit/Tenofov Ala [Biktarvy 50-200-25 Mg Tablet] PO SCH (09:00)
[2019-07-19] MEDS ORDERED: Chlorhexidine Gluconate 15 ML UDCUP SSP SCH (09:00)
[2019-07-19] MEDS ORDERED: Ondansetron PF 4 MG/2 ML Vial ONE (09:07)
[2019-07-19] MEDS ORDERED: Rocuronium Bromide 10 MG/ML (10ML VIAL) ONE (09:07)
[2019-07-19] MEDS ORDERED: Metoclopramide HCl 10 MG/2 ML VIAL ONE (09:07)
[2019-07-19] MEDS ORDERED: Ondansetron HCl/PF 4 MG/2 ML Vial IVP PRN (10:26)
[2019-07-19] MEDS ORDERED: Promethazine HCl 25 MG/ML VIAL IM PRN (10:26)
[2019-07-19] MEDS ORDERED: HYDROmorphone 2 MG/ML VIAL SLOW IVP PRN (10:26)
[2019-07-19] MEDS ORDERED: Promethazine HCl 25 MG/ML VIAL SLOW IVP PRN (10:26)
[2019-07-19] MEDS ORDERED: Morphine 2 MG/ML SYRINGE SLOW IVP PRN (10:38)
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
[2019-07-19] MEDS: Famotidine/PF 20 mg/2ml Vial SLOW IVP SCH ×2 (13:49→20:48)
[2019-07-19] MEDS: HumuLIN 70/30 (300 UNITS/3 ML VIAL) SC SCH ×2 (13:49→18:23)
[2019-07-19] MEDS: Chlorhexidine Gluconate 15 ML UDCUP SSP SCH ×3 (13:51→20:47)
[2019-07-19] MEDS: Ibuprofen 800 MG TAB PO SCH ×3 (13:51→22:44)
[2019-07-19] MEDS: HYDROcodone/Acetaminophen 7.5/325 mg Tablet PO PRN ×2 (16:24→22:44)
[2019-07-20] MEDS: Clindamycin/D5W 900 MG in Premix Bag 1 BAG IVPB SCH ×3 (01:57→17:27)
[2019-07-20] MEDS: Ibuprofen 800 MG TAB PO SCH ×4 (05:04→23:24)
[2019-07-20] MEDS: HumaLOG 300 UNITS/3 ML VIAL SC PRN ×2 (05:05→12:42)
[2019-07-20 05:14] LABS: #Lymphocytes 1.5 thou/uL (1.20-3.40); #Monocytes 1.1 thou/uL (0.11-0.59); #Neutrophils 5.6 thou/uL (1.40-6.50); %Basophils 0.5 % (0.0-1.0); %Eosinophils 0.6 % (0.0-10.0); %Lymphocytes 18.6 % (21.0-51.0); %Monocytes 13.2 % (0.0-10.0); %Neutrophils 67.1 % (42.0-75.0); Hemoglobin 11.5 g/dL (14.0-18.0); Mean Corpuscular HGB CONC 34.2 g/dL (32.0-36.0); Mean Corpuscular Hemoglobin 29.3 pg (27.0-31.0); Mean Corpuscular Volume 85.8 fL (78.0-98.0); Mean Platelet Volume 11.3 fL (7.4-10.4); Platelet Count 101 thou/uL (130-400); RBC Distribution Width 11.5 % (11.5-14.5); Red Blood Cell (RBC) Count 3.94 mill/uL (4.70-6.10); White Blood Cell (WBC) Count 8.3 thou/uL (4.8-10.8)
[2019-07-20 05:35] LABS: ALT (SGPT) 13 U/L (8-55); AST (SGOT) 14 U/L (5-34); Alkaline Phosphatase 89 U/L (40-110); Anion Gap 10 mmol/L (10-20); BUN (Urea Nitrogen) 9 mg/dL (8.9-20.6); Bilirubin, Total 1.3 mg/dL (0.2-1.2); Calc. Creatinine Clearance 216 mL/min (70-130); Calcium 8.7 mg/dL (7.8-10.44); Carbon Dioxide 26 mmol/L (22-29); Chloride 102 mmol/L (98-107); Estimated GFR-MDRD Greater than 90; Globulin 3.6 g/dL (2.4-3.5); Glucose 223 mg/dL (70-105); Potassium 3.7 mmol/L (3.5-5.1); Protein, Total 6.6 g/dL (6.0-8.3); Sodium 134 mmol/L (136-145)
--- NOTE | 2019-07-20 06:11 | PDOC.FM ---
- Subjective Subjective: Patient with no complaints this morning. He had surgery done on jaw yesterday with I&D and hardware removal. Jaw feels sore but overall feeling better. - Objective MAR Reviewed: Yes Vital Signs & Weight: Vital Signs (12 hours) Temp Pulse Resp BP Pulse Ox 07/20/19 04:00 97.7 F 78 16 110/73 97 07/20/19 00:23 97.8 F 74 16 102/53 L 98 07/19/19 20:00 98.1 F 93 16 154/78 H 98 Weight Weight 97.5 kg I&O: 07/18/19 07/19/19 07/20/19 06:59 06:59 06:59 Intake Total 1075 720 Balance 1075 720 Result Diagrams: 07/20/19 04:58 07/20/19 04:58 Phys Exam - Physical Examination Constitutional: NAD HEENT: moist MMs, sclera anicteric Neck: no JVD, supple Respiratory: no wheezing, clear to auscultation bilateral Cardiovascular: RRR, no significant murmur Gastrointestinal: positive bowel sounds Musculoskeletal: no edema, pulses present Neurological: normal sensation, moves all 4 limbs Psychiatric: normal affect, A&O x 3 Skin: no rash Dx/Plan (1) Infection of mandible Code(s): M27.2 - INFLAMMATORY CONDITIONS OF JAWS Status: Acute (2) Diabetes mellitus Code(s): E11.9 - TYPE 2 DIABETES MELLITUS WITHOUT COMPLICATIONS Status: Chronic Qualifiers: Diabetes mellitus type: type 2 Diabetes mellitus moth exterminator insulin use: unspecified [facility] exterminator insulin use status Diabetes mellitus complication status : with hyperglycemia Qualified Code(s): E11.65 - Type 2 diabetes mellitus with hyperglycemia (3) HIV (human immunodeficiency virus infection) Code(s): B20 - HUMAN IMMUNODEFICIENCY VIRUS [HIV] DISEASE Status: Acute Qualifiers: HIV symptom status: asymptomatic Qualified Code(s): Z21 - Asymptomatic human immunodeficiency virus [HIV] infection status - Plan Plan: Patient is a 29 yo AAM with past medical history of HIV, DM2, 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 1. Jaw Pain 2/2 Mandibular Fracture Plate Infection Pain & swelling in R side of face WBC normal CT: Inflammatory changes R masseter muscle, infected interanal fixation plate of R mandible, peridontal disease, reactive LAD Original surgery 06/15 Revision 4/19 Currently on Clinda s/p 1 dose in the ED, continue at 900 mg IV q8 hr per OMFS Continued toradol for pain prn Patient is currently NPO OMFS was contacted by the ED-- continue Clindamycin, start Peridex oral rinse TID I&D with hardware removal performed on 07/19/19 Appreciate recs. Alk Phos is elevated likely indicating bone infection 2. HIV + Continue home medication Biktarvy Pt has not been taking medication regularly as verified by his pharmacy ID doctor is Dr. Conway tried to contact, but his office is closed CD4 count and viral load ordered & pending 3. DMII Continue home med: Novolog 40 U QAM & 30 U QPM--will continue to adjust during stay Aggressive SSI ACHS Accuchecks 4. Elevated Blood Pressure Hx of HTN, previously took HCTZ and Amlodipine but stopped in Mar 2019 d/t running out of supply If BP remains elevated at surgery, will consider restarting HCTZ Code Status: Full Activity: Ad Luz Maria Diet: Clear liquids DVT PPx: SCDs Dispo: Stable, admitted to Surg inpt. Await further OMFS recs, s/p hardware removal yesterday. Anticipate discharge in <48 hrs.
[2019-07-20] MEDS: HumuLIN 70/30 (300 UNITS/3 ML VIAL) SC SCH (08:58)
[2019-07-20] MEDS: Chlorhexidine Gluconate 15 ML UDCUP SSP SCH ×4 (09:20→21:10)
[2019-07-20] MEDS: Famotidine/PF 20 mg/2ml Vial SLOW IVP SCH ×2 (09:20→21:10)
[2019-07-20] MEDS ORDERED: HumuLIN 70/30 (300 UNITS/3 ML VIAL) SC SCH (17:00)
[2019-07-20] MEDS: HYDROcodone/Acetaminophen 7.5/325 mg Tablet PO PRN ×2 (17:05→22:48)
--- NOTE | 2019-07-20 18:06 | PRG ---
DATE OF SERVICE: 07/20/2019 ADDENDUM: This is an addendum to the note of Dr. Yessica Logan. Mr. Matamoros is resting in bed quietly, in no distress. His blood glucoses are still slightly elevated and we will adjust his insulin accordingly. Continue antibiotics. Job ID: [id number]
[2019-07-21] MEDS: Clindamycin/D5W 900 MG in Premix Bag 1 BAG IVPB SCH ×2 (02:39→09:08)
[2019-07-21] MEDS: HYDROcodone/Acetaminophen 7.5/325 mg Tablet PO PRN ×3 (02:59→13:40)
--- NOTE | 2019-07-21 06:10 | PDOC.FM ---
- Subjective Subjective: Patient doing well this morning. Tolerated his diet well yesterday. Reports that Dr. Gavin saw him yesterday and cleared him to go home. Discussed patient will need to continue abx at home, patient agreeable with plan of care. - Objective Vital Signs & Weight: Vital Signs (12 hours) Temp Pulse Resp BP BP Pulse Ox 07/21/19 03:09 97.8 F 79 16 143/89 H 99 07/20/19 23:31 97.8 F 83 18 145/83 H 99 07/20/19 19:25 97.9 F 90 18 147/89 H 98 Weight Weight 97.5 kg I&O: 07/19/19 07/20/19 07/21/19 06:59 06:59 06:59 Intake Total 1075 720 Balance 1075 720 Result Diagrams: 07/20/19 04:58 07/20/19 04:58 Phys Exam - Physical Examination Constitutional: NAD HEENT: moist MMs R mandible swollen; no drainage visable in mouth Neck: no nodes, no JVD Respiratory: no wheezing, clear to auscultation bilateral Cardiovascular: RRR, no significant murmur Gastrointestinal: soft, non-tender Musculoskeletal: no edema, pulses present Neurological: non-focal, moves all 4 limbs Lymphatic: no nodes Psychiatric: normal affect, A&O x 3 Skin: no rash, normal turgor Dx/Plan (1) Jaw pain Code(s): R68.84 - JAW PAIN Status: Acute (2) Infection of mandible Code(s): M27.2 - INFLAMMATORY CONDITIONS OF JAWS Status: Acute (3) HIV (human immunodeficiency virus infection) Code(s): B20 - HUMAN IMMUNODEFICIENCY VIRUS [HIV] DISEASE Status: Chronic Qualifiers: HIV symptom status: asymptomatic Qualified Code(s): Z21 - Asymptomatic human immunodeficiency virus [HIV] infection status (4) History of mandibular surgery Code(s): Z98.890 - OTHER SPECIFIED POSTPROCEDURAL STATES Status: Chronic (5) Diabetes mellitus Code(s): E11.9 - TYPE 2 DIABETES MELLITUS WITHOUT COMPLICATIONS Status: Chronic Qualifiers: Diabetes mellitus type: type 2 Diabetes mellitus [facility] insulin use: unspecified [facility] insulin use status Diabetes mellitus complication status : with hyperglycemia Qualified Code(s): E11.65 - Type 2 diabetes mellitus with hyperglycemia (6) Dyslipidemia Code(s): E78.5 - HYPERLIPIDEMIA, UNSPECIFIED Status: Chronic - Plan Plan: Patient is a 29AAM with PMHx of HIV, DM2, 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 #Jaw Pain 2/2 Mandibular Fracture Plate Infection -Pain & swelling in R side of face, improved -WBC normal -CT: Inflammatory changes R masseter muscle, infected interanal fixation plate of R mandible, peridontal disease, reactive LAD -Original surgery 06/15 -Revision 09/13 -Currently on Clinda IV q8 hr per OMFS -Continued toradol for pain prn Patient is currently tolerating soft diet -OMFS was contacted by the ED-- continue Clindamycin, start Peridex oral rinse TID -I&D with hardware removal performed on 07/19/19 -per patient Dr. Gavin approved him for discharge yesterday; will check in with Dr. Gavin today to confirm. #HIV + -Continue home medication Biktarvy -Pt has not been taking medication regularly as verified by his pharmacy -ID doctor is Dr. Conway -CD4 count and viral load ordered & pending #DMII -home med: Novolog 40 U QAM & 30 U QPM; increased to 45am and 35pm Aggressive SSI ACHS Accuchecks #Elevated Blood Pressure -Hx of HTN, previously took HCTZ and Amlodipine but stopped in Mar 2019 d/t running out of supply -will restart home HCTZ today Code Status: Full Activity: Ad Luz Maria Diet: Soft foods DVT PPx: SCDs Dispo: Stable, admitted to Surg inpt. S/p hardware removal, on clindamycin q8h. Anticipate discharge today with continued abx outpatient. Addendum - Attending - Attending Attestation Date/Time: 07/21/19 1322 I personally evaluated the patient and discussed the management with Dr. Hoyos I agree with the History, Examination, Assessment and Plan documented above with any addition or exceptions noted below. Patient stable for dismissal this am. regard DM control 70/30 adjusted and encouraged to f/u with Dr Man BENNETT and with PCP for ongoing f/u DM2. Patient states he has already arranged OMFS follow up scheduled for next week. HCTZ for BP was restarted
[2019-07-21] MEDS: Ibuprofen 800 MG TAB PO SCH ×2 (06:49→12:20)
[2019-07-21] MEDS: HumaLOG 300 UNITS/3 ML VIAL SC PRN ×2 (06:54→12:21)
[2019-07-21] MEDS ORDERED: HumuLIN 70/30 (300 UNITS/3 ML VIAL) SC SCH (08:00)
--- NOTE | 2019-07-21 08:39 | PRG ---
DATE OF SERVICE: 07/20/2019 SUBJECTIVE: The patient is postoperative day #1 status post removal of multiple teeth, I and D of right ____masticator space and removal of right mandibular hardware. The patient is doing well. He is voiding, ambulating, tolerating p.o. OBJECTIVE: GENERAL: The patient is awake, alert, oriented x3, he is in no acute distress. VITAL SIGNS: Stable. He has been afebrile. His white count has decreased from admission and is____ranging in the low 200s now. He still has a moderate amount trismus, moderate amount of swelling, but no purulent drainage__ . Wounds are hemostatic. His oropharynx is clear. V3 is intact. ASSESSMENT: Doing well postoperative day #1. Okay for discharge and follow up in 1 week in my office. Prescriptions for discharge should be clindamycin 300 mg one tablet p.o. t.i.d. for 10 days, Peridex oral rinse 50 mL t.i.d. for 10 days. Job ID: [id number] [facility]
[2019-07-21] MEDS ORDERED: Hydrochlorothiazide 25 MG TAB PO SCH (09:00)
[2019-07-21] MEDS: Famotidine/PF 20 mg/2ml Vial SLOW IVP SCH (09:08)
[2019-07-21] MEDS: Chlorhexidine Gluconate 15 ML UDCUP SSP SCH ×2 (09:08→12:20)
[2019-07-21 11:32] VITALS: BP 169/97; TEMP 98.1
--- NOTE | 2019-07-21 11:34 | OP ---
DATE OF PROCEDURE: 07/19/2019 PREOPERATIVE DIAGNOSES: 1. Right account technician space abscess. 2. Necrotic teeth 1, 5, 32, and 30. 3. Infected right mandibular hardware. PROCEDURE PERFORMED: 1. Surgical removal of teeth 1, 5, 32, and 30. 2. Incision and drainage of right account technician space. 3. Removal of right mandibular deep-seated plate. SPECIMENS: The plate was taken and removed. Purulent drainage was taken for culture. ESTIMATED BLOOD LOSS: 50 mL. FINDINGS: Some loose screws on the plate and ragged fibrotic bone in the area of the fracture, but a good union. Necrotic teeth as noted above. Pus in the account technician space was also found. BRIEF PATIENT HISTORY AND PROCEDURE IN DETAIL: This is a 29-year-old male who is a little over a year and a half status post ORIF right mandibular fracture, has had kind of intermittent pain and swelling in the area, noted to have necrotic teeth as well. Taken to the operating room for incision and drainage, removal of necrotic teeth as well as removal of previous mandibular fixation hardware. The patient was prepped and draped in sterile fashion and a nasal tube was placed by Anesthesia prior to prepping and draping the patient. Throat pack was placed. Oropharynx was irrigated before this. A bite block was placed and used. Incision in the vestibule over fluctuant area with rizwan pus was done with an abscess cavity. I dissected down to below the sub masseteric area. Tooth #32, a drill buccal ostectomy was used. Dissection of the tooth as well as teeth 5, 1, and 30. 4-0 chromic gut stitches were placed over these areas. Sockets were curetted and irrigated with normal saline. Vestibular incision from the I and D was then extended up the ramus and anterior to the premolar area. A trocar stab incision was then used to get a screwdriver access to access the plate in the mandible. Plate was removed, curetted area thoroughly. All inflamed granulation tissue was irrigated and debrided. There appeared to be a bony union. The patient tolerated the procedure well. Closure of the wound with gentle approximation with 4-0 chromic. Job ID: [id number]
--- NOTE | 2019-07-22 13:43 | DIS ---
DATE OF ADMISSION: 07/18/2019 DATE OF DISCHARGE: 07/21/2019 ADMITTING RESIDENT: Nathan Dinh MD ADMITTING ATTENDING: Berny Minor MD DISCHARGE RESIDENT: Fanny Hoyos MD DISCHARGE ATTENDING: Elgin Caruso MD CONSULTS: Oral Surgery, Dr. Marrero and Dr. Gavin. PROCEDURES: On 07/19/2019: Surgical removal of teeth 1, 5, 32, and 30. Incision and drainage of right clinical secretary space. Removal of right mandibular deep-seated plate. PRIMARY DIAGNOSES: Jaw pain due to mandibular fracture plate infection. SECONDARY DIAGNOSES: Human immunodeficiency virus positive, type 2 diabetes, hypertension. DISCHARGE MEDICATIONS: 1. 15 mL of chlorhexidine gluconate q.i.d. x40. 2. 300 mg of clindamycin p.o. t.i.d. x30. 3. 12.5 mg hydrochlorothiazide p.o. daily x30. 4. 45 units of Humulin 70/30 q.a.m. 5. 35 units Humulin 70/30 q.p.m. 6. Biktarvy. DISCONTINUED MEDICATIONS: 1. Tylenol p.r.n. 2. IV clindamycin. 3. Pepcid. 4. Hydrocodone. 5. Ibuprofen. 6. Toradol. 7. Morphine. 8. Senakot. HISTORY OF PRESENT ILLNESS/HOSPITAL COURSE: The patient is a 29-year-old male with past medical history of HIV, type 2 diabetes, and hypertension, who presented to the ER with right jaw pain after history of right jaw surgery last year. He reportedly had his surgery in May of 2018 and then had a revision in August 2018. He had reported that he has swelling of his jaw at least once a month and increasing pain in his jaw. OMFS was consulted and performed procedure, see above. The patient was treated with IV clindamycin per OMFS recommendations and we discharged on p.o. clindamycin and chlorhexidine gluconate with followup with OMFS within 1 week. On the day of discharge, the patient have been able to tolerate p.o. fluids and was ready to go home. The patient also has a history of HIV and home medication of Biktarvy was continued at this time. The patient was encouraged to follow up with Dr. Conway for further evaluation of HIV status and for medication refills. For his diabetes, his home Humulin 70/30 was titrated up from 40 units q.a.m. to 45 units q.a.m. and from 30 units q.p.m. to 35 units q.p.m. He was encouraged to continue to check his blood sugar at home and to follow up with primary care physician. DISPOSITION: Stable. DISCHARGE INSTRUCTIONS: 1. Location: Home. 2. Diet: Carb conscious. 3. Activity: As tolerated. 4. Follow up with OMFS in one week and with PCP within one week. Job ID: [id number] CARL[facility] A
== END 2019-07-21 13:47 | disposition home or self-care (01) | DRG 496 ==
LOC: ERS 08:04 → SURG B 14:12
PROVIDERS: ADMIT Family Medicine; ATTEND Family Medicine
PROC: 0RP Upper Joints, Removal (ICD-10-PCS; principal; 2019-07-19)
PROC: 0W930ZZ Drainage of Oral Cavity and Throat, Open Approach (ICD-10-PCS; 2019-07-19)
PROC: 0CTX0Z1 Resection of Lower Tooth, Multiple, Open Approach (ICD-10-PCS; 2019-07-19)
PROC: 0CTW0Z1 Resection of Upper Tooth, Multiple, Open Approach (ICD-10-PCS; 2019-07-19)
DX: T84.69XA Infection and inflammatory reaction due to internal fixation device of other site, initial encounter (principal); K12.2 Cellulitis and abscess of mouth; Y83.8 Other surgical procedures as the cause of abnormal reaction of the patient, or of later complication, without mention of misadventure at the time of the procedure; M27.2 Inflammatory conditions of jaws; Z21 Asymptomatic human immunodeficiency virus [HIV] infection status; Z94.7 Corneal transplant status; K04.7 Periapical abscess without sinus; E11.65 Type 2 diabetes mellitus with hyperglycemia; I10 Essential (primary) hypertension; R25.2 Cramp and spasm; E78.5 Hyperlipidemia, unspecified; H54.7 Unspecified visual loss
CPT/HCPCS: 36415; 36416; 70487; 80053; 85025; 87070; 87077; 87205; 96365; 96375; J1100; J1815; J1885; J2250; J2270; J2405; J2765; J3010; J3490; Q9967; S0028